=== PATIENT | male | born 1955 ===

== ENCOUNTER 2022-01-26 08:15 | Inpatient (IN) | payer OTHER ==
[~2022-01-26] VITALS: Ht 170.2 cm; Wt 90.7 kg
[2022-01-26] MEDS ORDERED: AVAPRO300 MG PO (09:12)
[2022-02-01] MEDS ORDERED: CLONAZEPAM2 MG (07:49)
[2022-02-01] MEDS ORDERED: DICLOFENAC SOD100 GM (07:49)
[2022-02-01] MEDS ORDERED: SERTRALINE HCL50 MG (07:49)
[2022-02-01] MEDS ORDERED: GABAPENTIN100 M2 (07:49)
[2022-02-01] MEDS ORDERED: NAPROXEN SODIU550 MG (07:49)
[2022-02-01] MEDS ORDERED: POLYMYXIN B-TMP10 ML (07:50)
[2022-02-01] MEDS ORDERED: TORSEMIDE20 MG (07:50)
[2022-02-01] MEDS ORDERED: DUREZOL5 ML (07:50)
[2022-02-01] MEDS ORDERED: ETODOLAC400 MG (07:50)
[2022-02-03] MEDS ORDERED: PERCOCET 5-3251 EACH PO (13:57)
[2022-02-03] MEDS ORDERED: DUI500 PO (13:57)
[2022-02-03] MEDS ORDERED: ELIQUIS2.5 MG PO (13:57)
== END 2022-02-03 16:47 | DRG 470 ==
LOC: SURH 02-01 05:00 → O/R 02-01 05:00 → SURH 02-01 08:15
PROVIDERS: ADMIT Orthopaedic Surgery; ATTEND Orthopaedic Surgery
PROC: 0SRC0J9 Replacement of Right Knee Joint with Synthetic Substitute, Cemented, Open Approach (ICD-10-PCS; principal; 2022-02-01 09:00)
DX: M17.11 Unilateral primary osteoarthritis, right knee (principal); D62 Acute posthemorrhagic anemia; M22.11 Recurrent subluxation of patella, right knee; I10 Essential (primary) hypertension; Z20.822 Contact with and (suspected) exposure to COVID-19